=== PATIENT | female | born 1940 | race Caucasian/White ===

== ENCOUNTER → 2018-11-10 12:35 | Outpatient (CLI) | payer MEDICARE, OTHER, SELFPAY ==
--- NOTE | 2018-11-10 12:38 | DI.MRI.S_ITS ---
PROCEDURE: MR LUMBAR SPINE WO CON INDICATIONS: low back pain >3 months TECHNIQUE: Noncontrast sagittal T1 spin echo and T2 fast echo, sagittal STIR, axial T1 and T2 fast spin echo through the lumbar spine. In cases with scoliosis, additional coronal T2 fast spin echo may be performed. COMPARISON: [facility], , L-SPINE WITHOUT CONTRAST, 02/06/2015, 12:59. FINDINGS: Image quality: Excellent. Alignment and Curvature: Trace retrolisthesis of L2 on L3 and L3 on L4. Trace anterolisthesis of L5 on S1 Bone Marrow: No acute fracture. Multilevel degenerative endplate sclerosis and spurring. Diffuse facet arthropathy. Spinal Cord: Conus medullaris terminates at the L2 level. Visualized cord demonstrates normal signal and size. Paraspinous Soft Tissues: No paravertebral masses. Diffuse dorsal epidural lipomatosis, mild L1-L2: Mild central canal narrowing. Partial effacement of both lateral recesses with bilaterally symmetric appearance. Mild right foraminal narrowing. Mild to moderate left foraminal stenosis which is slightly progressed L2-L3: Mild central canal narrowing. No definite lateral recess narrowing. Mild/moderate bilateral foraminal stenoses with no interval change L3-L4: Mild central canal narrowing. Partial effacement of both lateral recesses with bilaterally symmetric appearance. Moderate left foraminal stenosis or nerve root compression. This appears progressed since the prior study Mild right foraminal narrowing, unchanged L4-L5: Moderate central canal narrowing. Partial effacement of both lateral recesses with bilaterally symmetric appearance. Moderate bilateral foraminal stenosis with mild nerve root compression. Overall, no interval change L5-S1: No canal stenosis. No lateral recess narrowing. Mild bilateral foraminal stenosis with minimal nerve root compression. No interval change IMPRESSION: Slight interval progression in mild to moderate left L1-L2 foraminal stenosis, and moderate left L3-L4 foraminal narrowing. Elsewhere, unchanged examination as above. Dictated by: Jaime Auguste M.D. on 11/10/2018 at 17:27 Approved by: Jaime Auguste M.D. on 11/10/2018 at 17:35
== END ==
PROVIDERS: PCP Physician Assistant Medical; Visit Provider Registered Nurse
DX: M54.5 Low back pain (principal); M48.061 Spinal stenosis, lumbar region without neurogenic claudication; M48.07 Spinal stenosis, lumbosacral region; G47.31 Primary central sleep apnea; G47.33 Obstructive sleep apnea (adult) (pediatric); Z99.89 Dependence on other enabling machines and devices
CPT/HCPCS: 72148; 99214

== ENCOUNTER 2019-01-04 12:50 | Outpatient (CLI) | payer MEDICARE, OTHER, SELFPAY ==
[2019-01-04] VITALS (10 sets, daily range): BP systolic 116–157; BP diastolic 47–78; PULSE 45–61; RESP 15–18; TEMP 36.1; O2SAT 94–100
--- NOTE | 2019-01-04 12:53 | DI.RAD.S_ITS ---
PROCEDURE: PAIN L/SI FACET INJ/BLK 1STL INDICATIONS: SPONDYLOSIS FINDINGS: Fluoroscopic spot filming was performed to verify placement of spinal needles at the L4-L5, L5-S1 level(s), as labeled on the films. Appropriate location(s) of the needle tip(s) was confirmed by injection of iodinated contrast. Dictated by: Jaime Auguste M.D. on 01/04/2019 at 14:54 Approved by: Jaime Auguste M.D. on 01/04/2019 at 14:56
[2019-01-04] MEDS: fentaNYL 100 MCG/2 ML INJ 50 MCG IV (13:58)
[2019-01-04] MEDS: MIDAZOLAM 5 MG/5 ML VIAL IV (13:58)
[2019-01-04] MEDS: BETAMETHASONE 30 MG/5 ML MDV 12 MG INJ (14:07)
[2019-01-04] MEDS: LIDOCAINE 1% 20 ML 5 ML INJ (14:07)
[2019-01-04] MEDS: BUPIVACAINE 0.5% (PF) VIAL 2 ML INJ (14:07)
[2019-01-04] MEDS: IOPAMIDOL 15 ML VIAL 3 ML INJ (14:07)
--- NOTE | 2019-01-04 14:08 | PC.NURSE ---
ASSISTING PT OFF TABLE AND TRANSPORTING TO POST PROC AREA IN STABLE CONDITION.
--- NOTE | 2019-01-04 14:17 | P.PCN_ITS ---
Procedures Date/Time Date of procedure: 01/04/19 Time of procedure: 14:18 General Procedure description: PREOP DIAGNOSIS 1. FACET ARTHROPATHY, 2. AXIAL LBP, 3. MULTILEVEL DDD, POST OP DIAGNOSIS 1. FACET ARTHROPATHY, 2. AXIAL LBP, 3. MULTILEVEL DDD, PROCEDURES 1. FLUORSCOPICALLY GUIDED CONTRAST CONTROLLED FACET JOINT INJECTIONS RIGHT L4/5, L5/S1 SURGEON: Jeremy Benitez, DO INDICATIONS Kaykay is referred by for treatment of Axial LBP FINDINGS Multilevel Facet Arthropathy with Clinically significant axial LBP DESCRIPTION OF PROCEDURE Fluoroscopically guided, contrast-controlled right L4/5, L5/S1 facet joint injections. Following review of allergy and review of potential side effects and complications, including, but not necessarily limited to, infection, allergic reaction, local tissue breakdown, stroke, temporary or permanent nerve injury, paralysis, and possible , the patient indicated that the patient understood and agreed to proceed. An informed consent document was signed by the patient, witnessed by a nurse, and placed in the patient's chart. Additionally, other treatment options including medications, modalities, and physical therapy were reviewed with the patient. After review of previous anaesthesic history and IV conscious sedation the patient was deemed safe to proceed with todays procedure with IV conscious sedation as ASA class II designation. Safety time-out was performed to confirm patient ID, procedure to be performed and site of procedure. IV sedation was accomplished with a combination of 2mg of Versed and 50mcg of Fentanyl was administered by the RN after DO order, titrated to patient comfort during the course of the procedure while the patient remained responsive to all verbal commands. In the prone position, following sterile prep and drape of the lumbar region, the posterior aspect of the right L4/5, L5/S1 facet joints were identified fluoroscopically. The skin was anesthetized via a 25-gauge 1.5-inch needle with 1% lidocaine solution into the corresponding facet joints. At this point, a 22- gauge 3.5-inch spinal needle was atraumatically introduced and advanced under fluoroscopic guidance into the corresponding facet joints. Following negative aspiration, injections of approximately 0.2-cc of Isovue 200 confirmed interarticular placement without vascular uptake. Radiological data, including multiple fluoroscopic views of the lumbosacral spine, reveal a spinal needle at the right L4/5, L5/S1 facet joints. Subsequent views show flow of contrast material both superiorly and inferiorly within the joint space without vascular or intrathecal uptake. At this point, a total of 0.5 cc including a mixture of 0.25cc Marcaine and 0.25cc betamethasone was injected without complication into each of the corresponding facet joints. The procedure tolerated the procedure well without signs or symptoms of complications prior to transfer to the recovery area continued monitoring without incident. The patient was then transferred to the recovery area where they were observed for an appropriate period of time after the injection. The patient reported a VAS score of 7 prior to the procedure and a post-procedure VAS of 0. Total Fluoroscopy Time: 12.7 seconds Total Conscious Sedation Time: 24min POST OP INSTRUCTIONS The patient was provided a Pain Log to continue to record their response to the target-specific procedure prior to follow-up visit with their referring physician. Additionally, specific post-injection care instructions and a contact number to our office were provided if concerns arise regarding possible complications associated with the procedure are suspected. Jeremy Benitez, Complications: none
== END 2019-01-04 14:48 ==
LOC: RAD 12:52
PROVIDERS: PCP Physician Assistant Medical; Visit Provider Physical Medicine & Rehabilitation
DX: M47.817 Spondylosis without myelopathy or radiculopathy, lumbosacral region (principal); M47.816 Spondylosis without myelopathy or radiculopathy, lumbar region; M54.5 Low back pain; M51.37 Other intervertebral disc degeneration, lumbosacral region; M51.36 Other intervertebral disc degeneration, lumbar region
CPT/HCPCS: 64493; 64494; 99152; J0702; J2250; J3010

== ENCOUNTER → 2020-10-30 13:05 | Outpatient (CLI) | payer MEDICARE, OTHER, SELFPAY ==
--- NOTE | 2020-10-30 13:06 | DI.MRI.S_ITS ---
PROCEDURE: MR LUMBAR SPINE WO CON INDICATIONS: Spondylolisthesis, lumbar region TECHNIQUE: Noncontrast sagittal T1 spin echo and T2 fast echo, sagittal STIR, axial T1 and T2 fast spin echo through the lumbar spine. In cases with scoliosis, additional coronal T2 fast spin echo may be performed. COMPARISON: [facility], MR, MR LUMBAR SPINE WO CON, 11/10/2018, 12:50. [facility], CR, XR LUMBAR SPINE 2 OR 3 VIEWS, 10/14/2020, 15:22. [facility], MR, L-SPINE WITHOUT CONTRAST, 02/06/2015, 12:59. FINDINGS: Image quality: Degraded by patient motion artifact. Alignment and Curvature: There is trace L1-L2, L2-L3 and L3-L4 retrolisthesis. There is trace L4-L5 and L5-S1 anterolisthesis. There is approximately 16? of convex right lumbar spine scoliosis. Bone Marrow: Reactive endplate changes noted adjacent the L1-L2, L2-L3, L3-L4, L4-L5 and L5-S1 discs. No acute vertebral body compression fractures. Spinal Cord: Conus medullaris terminates at the L2 level. Visualized cord demonstrates normal signal and size. Paraspinous Soft Tissues: No paravertebral masses. T12-L1: Loss of disc signal and slight loss of disc height. Mild, diffuse disc bulge. Mild narrowing of the central canal. No neural foraminal narrowing. No neural compression. L1-L2: Loss of disc signal and slight loss of disc height. Mild to moderate diffuse disc bulge. Mild bilateral facet hypertrophy. Mild narrowing of the central canal. Mild right and severe left neural foraminal narrowing with compression of the exiting left L1 nerve root. L2-L3: Loss of disc signal and height. Mild, diffuse disc bulge. Mild bilateral fac No neural compression.et hypertrophy. Mild narrowing of the central canal. Moderate bilateral neural foraminal narrowing. No neural compression. L3-L4: Loss of disc signal and slight loss of disc height. Moderate, diffuse disc bulge. Moderate bilateral facet hypertrophy. Moderate ligamentum flavum hypertrophy. Moderate narrowing of the central canal. [id number] right and moderate to severe left neural foraminal narrowing with slight compression of the exiting left L3 nerve root. L4-L5: Loss of disc signal and slight loss of disc height. Moderate, diffuse disc bulge. Moderate bilateral facet hypertrophy. Moderate ligamentum flavum hypertrophy. Moderate narrowing of the central canal. Moderate right and [id number] left neural foraminal narrowing. No neural compression L5-S1: Loss of disc signal. Minimal, diffuse disc bulge. Moderate to severe bilateral facet hypertrophy. No central stenosis. Moderate right and [id number] left neural foraminal narrowing. IMPRESSION: 1. Multilevel degenerative disc disease. 2. Multilevel facet arthropathy. 3. No severe central canal narrowing. 4. Severe left L1-L2 neural foraminal narrowing with compression of the exiting left L1 nerve root. Moderate to severe left L3-L4 neural foraminal narrowing with slight compression of the exiting left L3 nerve root. Dictated by: Maria L Chowdhury MD, PhD on 10/30/2020 at 15:49 Approved by: Maria L Chowdhury MD, PhD on 10/30/2020 at 15:54
== END ==
PROVIDERS: PCP Physician Assistant Medical; Referring Provider Orthopaedic Surgery Orthopaedic Surgery of the Spine; Visit Provider Orthopaedic Surgery Orthopaedic Surgery of the Spine
DX: M43.16 Spondylolisthesis, lumbar region (principal); M51.36 Other intervertebral disc degeneration, lumbar region; M47.816 Spondylosis without myelopathy or radiculopathy, lumbar region; M47.817 Spondylosis without myelopathy or radiculopathy, lumbosacral region; M48.061 Spinal stenosis, lumbar region without neurogenic claudication; M48.07 Spinal stenosis, lumbosacral region
CPT/HCPCS: 72148

== ENCOUNTER → 2022-12-03 10:28 | Outpatient (CLI) | payer MEDICARE, OTHER, SELFPAY ==
--- NOTE | 2022-12-03 | DI.MRI.S_ITS ---
PROCEDURE: MR LUMBAR SPINE WO CON INDICATIONS: Spinal stenosis, lumbar region TECHNIQUE: Noncontrast sagittal T1 spin echo and T2 fast echo, sagittal STIR, and T2 fast spin echo through the lumbar spine. In cases with scoliosis, additional coronal T2 fast spin echo may be performed. COMPARISON: [facility], MR, MR LUMBAR SPINE WO CON, 10/30/2020, 13:31. FINDINGS: Image quality: Excellent. Alignment and Curvature: There is normal bony alignment. Bone Marrow: Degenerative endplate changes Spinal Cord: Conus medullaris terminates at the L1 level. Visualized cord demonstrates normal signal and size. Paraspinous Soft Tissues: No paravertebral masses. T12-L1: Disc space narrowing with circumferential disc bulge and hypertrophic facet joints results in mild central and no foraminal stenosis L1-L2: Disc space narrowing with circumferential disc bulge and hypertrophic facet joints results in mild central mild bilateral foraminal stenosis L2-L3: Disc space narrowing with circumferential disc bulge and hypertrophic facet joints results in mild central stenosis. Moderate bilateral foraminal stenosis L3-L4: Disc space narrowing with circumferential disc bulge and hypertrophic facet joints results in mild central stenosis. Moderate left and mild right foraminal stenosis L4-L5: Disc space narrowing with circumferential disc bulge and hypertrophic facet joints results in moderate central stenosis. Mild bilateral foraminal stenosis. L5-S1: Disc space narrowing with circumferential disc bulge and hypertrophic facet joints results in no central or left foraminal stenosis. Mild right foraminal stenosis IMPRESSION: Multilevel degenerative disc disease and arthropathy results in varying degrees of central and foraminal stenosis including moderate foraminal stenosis L2-3 and L3-4 Approved by: Oscar Medley M.D. on 12/03/2022 at 15:27
== END ==
PROVIDERS: PCP Physician Assistant Medical; Referring Provider Physical Medicine & Rehabilitation; Visit Provider Physical Medicine & Rehabilitation
DX: M48.062 Spinal stenosis, lumbar region with neurogenic claudication (principal); M51.36 Other intervertebral disc degeneration, lumbar region; M47.816 Spondylosis without myelopathy or radiculopathy, lumbar region
CPT/HCPCS: 72148